=== PATIENT | female | born 1960 | race Two or more races ===

== ENCOUNTER 2023-11-24 19:34 | Emergency (ER) | payer OTHER ==
[2023-11-24 19:45] VITALS: BP 184/99; PULSE 115; RESP 16; TEMP 98.2; BMI 26.6
[2023-11-24] MEDS: SODIUM CHLORIDE 1,000 ML IV ONE (20:30)
[2023-11-24 20:40] LABS: HEMATOCRIT 40.6 % (32.4-45.2); HEMOGLOBIN 13.5 G/dL (10.7-15.3); MCH 29.7 pg (25.7-33.7); MCHC 33.2 g/dl (32.0-36.0); MEAN CELL VOLUME 89.4 fl (80-96); MEAN PLT VOLUME 7.8 fl (7.5-11.1); PLATELET COUNT 244.6 10^3/uL (134-434); RBC 4.54 10^6/uL (3.60-5.2); RDW 14.2 % (11.6-15.6); WHITE BLOOD COUNT 7.8 10^3/uL (4.0-10.8)
[2023-11-24 21:10] LABS: ALBUMIN 4.3 g/dl (3.4-5.0); BILIRUBIN,TOTAL 0.4 mg/dl (0.2-1); CREATININE 0.8 mg/dl (0.6-1.3); POTASSIUM 4.3 mmol/L (3.5-5.1); TOT PROT 7.6 g/dl (6.4-8.2)
[2023-11-24 21:19] LABS: EPITHELIAL CELLS 0-5 /hpf; URINE HYALINE CAST 0-1 /lpf; URINE MUCUS 1+
== END 2023-11-24 21:38 | disposition home or self-care (01) ==
LOC: FER 19:34
PROC: 3E0337Z Introduction of Electrolytic and Water Balance Substance into Peripheral Vein, Percutaneous Approach (ICD-10-PCS; principal; 2023-11-24)
DX: R68.83 Chills (without fever) (principal)
CPT/HCPCS: 36415; 80053; 81003; 81015; 82550; 84484; 85027; 87086; 93005; 99284-25